=== PATIENT | male | born 1955 | race American Indian/Alaskan Native ===

== ENCOUNTER 2018-01-15 11:47 | Emergency (ER) | payer MEDICAID ==
[2018-01-15 12:21] VITALS: BP 132/90
--- NOTE | 2018-01-15 16:14 | Emergency Department Report ---
Eye Injury/Foreign Body - HPI Duration: 3 months Severity: None Eye Symptoms: Eye Pain: No, Blurred Vision: No, Eye Redness: No, Grinding/ Hammering Metal: No, Used Eye Protection: No, Contact Lens Use: No, Recalls Injury: No, Photophobia: No Other History: This is a 62-year-old male nontoxic, well nourished in appearance , no acute signs of distress presents to the ED with c/o of right upper eyelid nodular. Patient stated this is intermittent and chronic for 3 months. Patient denies any trauma. Patient denies any pain. Patient deneis any visual changes, fever, chills, headache, nausea, vomiting, chest pain, shortness of breathe. Patient denies any allergies or PMH. ED Review of Systems ROS: Stated complaint: RIGHT EYE PAIN Other details as noted in HPI Constitutional: denies: chills, fever Eyes: denies: eye pain, eye discharge, vision change ENT: denies: ear pain, throat pain Respiratory: denies: cough, shortness of breath, wheezing Cardiovascular: denies: chest pain, palpitations Endocrine: no symptoms reported Gastrointestinal: denies: abdominal pain, nausea, diarrhea Genitourinary: denies: urgency, dysuria Musculoskeletal: denies: back pain, joint swelling, arthralgia Skin: denies: rash, lesions Neurological: denies: headache, weakness, paresthesias Psychiatric: denies: anxiety, depression Hematological/Lymphatic: denies: easy bleeding, easy bruising ED Past Medical Hx - Past Medical History Hx Hypertension: Yes Hx Seizures: Yes - Surgical History Past Surgical History?: No - Social History Smoking Status: Current Every Day Smoker Substance Use Type: Alcohol, Marijuana Eye Injury Exam - Exam General: Vital signs noted. No distress. Alert and acting appropriately. GENERAL: The patient is a well-developed, well-nourished in no apparent distress. Patient is alert and acting appropriately for age. Alert and oriented 3, no apparent distress, normal gait, atraumatic. HEENT: Nodular 1 cm circular to right eyelid. None tender. No cellulitis. No redness. No induration or flutance noted. Head is normocephalic and atraumatic. PERRL, Extraocular muscles are intact. Pupils are equal, round, and reactive to light and accommodation. Nares appeared normal. Mouth is well hydrated and without lesions. Mucous membranes are moist. Posterior pharynx clear of any exudate or lesions. Mouth is well hydrated and without lesions. Tonsils not erythematous or swollen. Uvula midline. Tongue elevated. Mucous members are moist. Posterior pharynx clear, no exudate or lesions. Patent airways. NECK: Supple. No carotid bruits. No lymphadenopathy or thyromegaly.nontender. No meningitic signs are noted. LUNGS: Clear to auscultation. Non labor breathing. No intercostal retractions. Symmetrical with respiration, no wheezing, no rales, or crackles. HEART: Regular rate and rhythm without murmur, rubs or gallops. No reproducible. S1, S2 present, regular rate and rhythm without murmur, no rubs, no gallops. ABDOMEN: Soft, nontender, and nondistended. Positive bowel sounds. No hepatosplenomegaly was noted. No guarding or rebound tenderness, negative epigastric bruit. Negative psoas sign, negative velázquez sign, negative McBurneys sign EXTREMITIES: Without any cyanosis, clubbing, rash, lesions or edema. Peripheral pulses intact. Capillary refill less than 2 seconds. Full range of motion bilaterally. NEUROLOGIC: Cranial nerves II through XII are grossly intact. Alert and oriented x 3. Normal gait. Symmetrical strength and sensation. Reflexes 2+ throughout. Cerebellar testing normal. GCS score of 15. PSYCHIATRIC: Normal affect with no suicidal or homicidal ideations. ED Course Vital Signs 01/15/18 12:18 Temperature 98.1 F Pulse Rate 91 H Respiratory 16 Rate Blood Pressure 132/90 O2 Sat by Pulse 96 Oximetry - Reevaluation(s) Reevaluation #1: 01/15/18 16:14 Patient is speaking in full sentences with no signs of distress noted. ED Medical Decision Making - Medical Decision Making This is a 62-year-old male that presents with external hordeolum. Patient is stable and was examined by me. Patient denies any visual changes. There is no cellulitis. Patient was given a pamphlet from up-to-date about external hordeolum. Patient was instructed to apply warm compresses. Patient was referred instructed to Follow-up with a gerontology aide doctor in 3-5 days or if symptoms worsen and continue return to emergency room as soon as possible. At time of discharge, the patient does not seem toxic or ill in appearance. No acute signs of distress noted. Patient agrees to discharge treatment plan of care. No further questions noted by the patient. Critical care attestation.: If time is entered above; I have spent that time in minutes in the direct care of this critically ill patient, excluding procedure time. ED Disposition Clinical Impression: Cristhian Qualifiers: Laterality: right Eyelid: upper Qualified Code(s): H00.011 - Hordeolum externum right upper eyelid Disposition: - TO HOME OR SELFCARE Is pt being admited?: No Does the pt Need Aspirin: No Condition: Stable Instructions: Cristhian (ED) Additional Instructions: Follow-up with a gerontology aide doctor in 3-5 days or if symptoms worsen and continue return to emergency room as soon as possible. A Apply warm compressors. Referrals: PRIMARY CARE, [Primary Care Provider] - 3-5 Days MAI WEST MD [Staff Physician] - 3-5 Days ALEJANDRO TERAN MD [Staff Physician] - 3-5 Days [facility] [Outside] - 3-5 Days [facility] [Outside] - 3-5 Days Forms: Work/School Release Form(ED)
== END 2018-01-15 16:18 | disposition home or self-care (01) ==
LOC: ED 11:47
DX: H00.011 Hordeolum externum right upper eyelid (principal); I10 Essential (primary) hypertension; F17.200 Nicotine dependence, unspecified, uncomplicated; F12.10 Cannabis abuse, uncomplicated
CPT/HCPCS: 99281